=== PATIENT | male | born 1990 | race Caucasian/White ===

== ENCOUNTER 2018-06-16 16:23 | Outpatient (CLI) | payer BC ==
[2018-06-16 17:30] LABS: #Basophils 0.1 thou/uL (0.0-0.2); #Eosinphils 0.1 thou/uL (0.0-0.7); #Lymphocytes 2.8 thou/uL (1.20-3.40); #Monocytes 0.6 thou/uL (0.11-0.59); #Neutrophils 4.5 thou/uL (1.40-6.50); %Basophils 1.1 % (0.0-1.0); %Eosinophils 0.9 % (0.0-10.0); %Lymphocytes 34.6 % (21.0-51.0); %Monocytes 6.9 % (0.0-10.0); %Neutrophils 56.5 % (42.0-75.0); Mean Corpuscular HGB CONC 35.5 g/dL (32.0-36.0); Mean Corpuscular Hemoglobin 31.7 pg (27.0-31.0); Mean Corpuscular Volume 89.3 fL (78.0-98.0); Mean Platelet Volume 8.4 fL (7.4-10.4); Platelet Count 212 thou/uL (130-400); RBC Distribution Width 10.9 % (11.5-14.5); Red Blood Cell (RBC) Count 5.04 mill/uL (4.70-6.10)
[2018-06-16 17:57] LABS: Anion Gap 14 mmol/L (10-20); BUN (Urea Nitrogen) 22 mg/dL (8.9-20.6); Calc. Creatinine Clearance 0 mL/min (70-130); Calcium 9.8 mg/dL (7.8-10.44); Carbon Dioxide 24 mmol/L (22-29); Chloride 104 mmol/L (98-107); Estimated GFR-MDRD 77; Glucose 81 mg/dL (70-105); Potassium 3.7 mmol/L (3.5-5.1); Sodium 138 mmol/L (136-145)
== END 2018-06-16 16:24 | disposition home or self-care (01) ==
LOC: LABBT 16:23
PROVIDERS: ATTEND Surgery
DX: Z01.812 Encounter for preprocedural laboratory examination (principal); K40.90 Unilateral inguinal hernia, without obstruction or gangrene, not specified as recurrent
CPT/HCPCS: 80048; 85025

== ENCOUNTER 2018-06-22 11:52 | Day surgery (SDC) | payer BC ==
[2018-06-16 16:42] VITALS: BMI 30.8
[2018-06-22] MEDS ORDERED: CEFAZOLIN 2 GM/50 ML BAG ONE (12:26)
[2018-06-22] MEDS ORDERED: Bupivacaine/Epinephrine 0.25% 30 ML VIAL ONE (12:54)
[2018-06-22] MEDS ORDERED: Fentanyl 250 MCG/5 ML VIAL ONE (13:02)
[2018-06-22] MEDS ORDERED: PROPOFOL 200 MG/20 ML VIAL ONE (15:30)
[2018-06-22] MEDS ORDERED: Ondansetron PF 4 MG/2 ML Vial ONE (15:30)
[2018-06-22] MEDS ORDERED: Glycopyrrolate 0.2 MG/ML 5 ML SYRINGE ONE (15:30)
[2018-06-22] MEDS ORDERED: Lidocaine 1% PF 5 ML VIAL ONE ×2 (15:30)
--- NOTE | 2018-06-22 21:53 | OP ---
DATE OF PROCEDURE: 06/22/2018 PREOPERATIVE DIAGNOSIS: Left inguinal hernia. POSTOPERATIVE DIAGNOSIS: Left inguinal hernia. PROCEDURE PERFORMED: Da Kwan laparoscopic left inguinal hernia repair with mesh, 3DMax, large. ANESTHESIA: General. ESTIMATED BLOOD LOSS: Minimal. COMPLICATIONS: None. SPECIMEN: None. FINDINGS: Left inguinal hernia. DESCRIPTION OF PROCEDURE: The patient was taken to the operating room and laid supine on the operating room table. After general anesthetic was obtained, a Luna was placed. The abdomen was shaved, prepped, and draped in a sterile fashion. A curved incision was made above the umbilicus. Cautery was used to dissect down into the abdominal edge to make a helen in the fascia. Abdominal cavity entered using a Trudi clamp. Holding stitch of PDS was placed on each side of the fascia and the 11-mm trocar was placed. High-flow pneumoperitoneum was obtained. Left and right 8-mm robot assist ports were placed. All ports were docked to the robot. The patient's surgeon goes to the console. The peritoneum was opened in the left groin exposing the preperitoneal space, which was bluntly dissected to the pubic tubercle medially, anterior superior iliac crest laterally, and the direct hernia dissected high up on to the peritoneum. No direct defect. 3DMax large mesh was brought into the sterile field, medial aspect was placed over pubic tubercle on the left side. The mesh was laid out to cover the indirect, direct, and femoral areas. The mesh was sewn via Vicryl suture to pubic tubercle medially and to the posterior fascia laterally. The perineum was reapproximated using 3-0 STRATAFIX. There was no bleeding. No injury to any intraabdominal structures. All needles were removed from the abdomen. All ports were undocked from the robot. Local anesthetic was applied and all ports were removed under direct visualization without bleeding. Pneumoperitoneum was let down. The PDS was used to close the fascial defect above the umbilicus. All incisions were irrigated and closed using 4-0 Monocryl and Dermabond. The patient was sent to Recovery Room in stable condition. All instrument counts, needle counts, and lap counts were correct. Job ID: [id number]
== END 2018-06-22 16:02 | disposition home or self-care (01) ==
LOC: SDC 11:52
PROVIDERS: ATTEND Surgery
PROC: 0YU64JZ Supplement Left Inguinal Region with Synthetic Substitute, Percutaneous Endoscopic Approach (ICD-10-PCS; principal; 2018-06-22)
DX: K40.90 Unilateral inguinal hernia, without obstruction or gangrene, not specified as recurrent (principal)
CPT/HCPCS: C1781; J3010